=== PATIENT | female | born 2000 | race African-American/Black ===

== ENCOUNTER 2022-02-20 11:09 | Inpatient (IN) | payer MEDICAID ==
[~2022-02-20] VITALS: Ht 167.6 cm; Wt 103.0 kg
[2022-02-20] MEDS ORDERED: DEXT 5%/LR + PITOCIN 20UNITS/L 1,000 ML IV SCH (11:30)
[2022-02-20] MEDS ORDERED: NALOXONE HCL 0.4 MG/ML 1ML VIAL IM PRN (11:30)
[2022-02-20] MEDS ORDERED: LACTATED RINGERS 1,000 ML IV SCH (11:30)
[2022-02-20] MEDS ORDERED: RHO(D) IMMUNE GLOBULIN 300 MCG/SYR IM ONE (11:30)
[2022-02-20] MEDS ORDERED: TERBUTALINE SULFATE 1MG/ML VIAL SUBCUT NR (12:15)
[2022-02-20 12:23] LABS: BASOPHILS % 0.3 % (0.0-2.0); EOSINOPHILS % 0.2 % (0.0-5.0); HEMOGLOBIN. 11.1 g/dL (12.0-16.0); LYMPHOCYTES % 19.4 % (20.0-50.0); MEAN CORPUSCULAR VOLUME 83.4 fL (81.0-99.0); NEUTROPHILS % 68.1 % (40.0-76.0); PLATELET 158 x1000/uL (130-400); RED BLOOD CELL COUNT 3.95 mill/uL (4.2-5.4); RED CELL DISTRIBUTION WIDTH 15.3 % (11.6-14.6)
[2022-02-20] MEDS ORDERED: MORPHINE SULFATE/PF 1MG/ML 10ML AMP ONE (12:24)
[2022-02-20] MEDS ORDERED: DEXAMETHASONE 4MG/ML 1ML VIAL ONE (12:25)
[2022-02-20] MEDS ORDERED: OXYTOCIN 10 UNITS/ML 1ML ONE (12:25)
[2022-02-20] MEDS ORDERED: ONDANSETRON HCL 4MG/2ML INJ ONE (12:25)
[2022-02-20] MEDS ORDERED: EPHEDRINE SULFATE 50MG/ML VIAL ONE (12:26)
[2022-02-20] MEDS ORDERED: PHENYLEPHRINE HCL 10 MG/ML 1ML (IV VIAL) IV ONE (12:26)
[2022-02-20 12:35] LABS: PARTIAL THROMBOPLASTIN TIME 27.6 sec (23.4-31.0); PROTHROMBIN TIME 10.5 sec (9.6-11.0)
[2022-02-20 12:44] LABS: CLARITY URINE CLEAR (CLEAR); COLOR URINE DARK YELLOW (YELLOW); KETONES URINE 2+ (NEGATIVE); LEUKOCYTE ESTERASE URINE 1+ (NEGATIVE); NITRITE URINE NEGATIVE (NEGATIVE); OCCULT BLOOD URINE NEGATIVE (NEGATIVE); PROTEIN URINE TRACE (NEGATIVE); SPECIFIC GRAVITY URINE 1.023 (1.005-1.030)
[2022-02-20 12:59] LABS: *AMPHETAMINES SCREEN URINE NEGATIVE (NEGATIVE); *BARBITURATES SCREEN URINE NEGATIVE (NEGATIVE)
[2022-02-20 13:00] LABS: *BENZODIAZEPINES SCREEN URINE NEGATIVE (NEGATIVE); *COCAINE SCREEN URINE NEGATIVE (NEGATIVE); METHADONE URINE SCREEN NEGATIVE (NEGATIVE)
[2022-02-20 13:08] LABS: OPIATES URINE SCREEN NEGATIVE (NEGATIVE); PHENCYCLIDINE URINE SCREEN NEGATIVE (NEGATIVE)
[2022-02-20] MEDS ORDERED: KETOROLAC 60MG/2ML VIAL IM ONE (13:15)
[2022-02-20] MEDS ORDERED: FENTANYL CITRATE/PF 50MCG/ML 2ML VIAL IV PRN (14:00)
[2022-02-20] MEDS ORDERED: NALOXONE HCL 0.4 MG/ML 1ML VIAL IV PRN (14:00)
[2022-02-20] MEDS ORDERED: IBUPROFEN 400MG TABLET PO PRN (14:15)
[2022-02-20] MEDS ORDERED: BISACODYL 10MG SUPP PR PRN (14:15)
[2022-02-20] MEDS ORDERED: RHO(D) IMMUNE GLOBULIN 300 MCG/SYR IM PRN (14:15)
[2022-02-20] MEDS ORDERED: OXYCODONE HCL/ACETAMINOPHEN 5/325MG TABLET PO PRN (14:15)
[2022-02-20] MEDS ORDERED: HYDROMORPHONE HCL/PF 2MG/ML CPJ IM PRN (14:15)
[2022-02-20 14:19] LABS: CANNABINOID URINE SCREEN PRESUMTIVE POSITIVE (NEGATIVE)
[2022-02-20 16:30] VITALS: BP 99/58
[2022-02-20 16:48] LABS: HEPATITIS B SURFACE ANTIGEN NEGATIVE
[2022-02-20 18:30] VITALS: BP 107/54
[2022-02-20 20:00] VITALS: BP 97/56
[2022-02-20] MEDS: DEXT 5%/LR + PITOCIN 20UNITS/L 1,000 ML IV SCH (20:32)
[2022-02-20 23:40] VITALS: BP 96/48
[2022-02-21 04:30] VITALS: BP 97/41
[2022-02-21] MEDS: DEXT 5%/LR + PITOCIN 20UNITS/L 1,000 ML IV SCH (04:30)
[2022-02-21 06:00] VITALS: BP 105/52
[2022-02-21] MEDS: IBUPROFEN 800MG TABLET PO PRN ×2 (06:15→12:55)
[2022-02-21 06:26] LABS: BASOPHILS % 0.1 % (0.0-2.0); EOSINOPHILS % 0.1 % (0.0-5.0); HEMOGLOBIN. 8.7 g/dL (12.0-16.0); MEAN CORPUSCULAR HEMOGLOBIN 28.4 pg (28.0-32.0); MEAN CORPUSCULAR VOLUME 84.6 fL (81.0-99.0); MEAN PLATELET VOLUME 10.5 fl (7.4-10.4); MONOCYTES % 8.9 % (2.0-8.0); NEUTROPHILS % 72.9 % (40.0-76.0); PLATELET 68 x1000/uL (130-400); RED BLOOD CELL COUNT 3.08 mill/uL (4.2-5.4); RED CELL DISTRIBUTION WIDTH 15.9 % (11.6-14.6)
[2022-02-21 07:41] VITALS: BP 93/50
[2022-02-21] MEDS: PRENATAL VIT/FE FUMARATE/FA TABLET PO SCH (08:50)
[2022-02-21] MEDS: FERROUS SULFATE 325MG TABLET PO SCH ×3 (08:50→18:04)
[2022-02-21 16:05] VITALS: BP 110/49
[2022-02-21 19:30] VITALS: BP 103/44
[2022-02-22 04:00] VITALS: BP 119/69
[2022-02-22] MEDS: PRENATAL VIT/FE FUMARATE/FA TABLET PO SCH (07:59)
[2022-02-22] MEDS: IBUPROFEN 800MG TABLET PO PRN ×2 (07:59→17:27)
[2022-02-22] MEDS: FERROUS SULFATE 325MG TABLET PO SCH ×3 (07:59→17:27)
[2022-02-22 08:00] VITALS: BP 106/49
[2022-02-22 09:27] LABS: BASOPHILS % 0.3 % (0.0-2.0); EOSINOPHILS % 0.3 % (0.0-5.0); HEMOGLOBIN. 9.4 g/dL (12.0-16.0); LYMPHOCYTES % 21.5 % (20.0-50.0); MEAN CORPUSCULAR HEMOGLOBIN 28.4 pg (28.0-32.0); MEAN CORPUSCULAR VOLUME 84.7 fL (81.0-99.0); MEAN PLATELET VOLUME 9.3 fl (7.4-10.4); MONOCYTES % 9.9 % (2.0-8.0); PLATELET 145 x1000/uL (130-400); RED CELL DISTRIBUTION WIDTH 15.5 % (11.6-14.6)
[2022-02-22 16:00] VITALS: BP 101/45
[2022-02-22 19:30] VITALS: BP 114/60
[2022-02-23 04:00] VITALS: BP 112/62
[2022-02-23] MEDS ORDERED: IBUP-2028 PO (05:48)
[2022-02-23] MEDS ORDERED: FERR-63 PO (05:48)
[2022-02-23] MEDS: FERROUS SULFATE 325MG TABLET PO SCH (07:30)
[2022-02-23 08:16] VITALS: BP 103/45
[2022-02-23] MEDS: PRENATAL VIT/FE FUMARATE/FA TABLET PO SCH (09:00)
[2022-02-23] MEDS: IBUPROFEN 800MG TABLET PO PRN (10:38)
== END 2022-02-23 11:05 | disposition home or self-care (01) | DRG 540 ==
LOC: 8 EST LDRP 11:09 → OBSVTOIN 11:09 → 8EST 16:30
PROVIDERS: ADMIT Obstetrics & Gynecology; ATTEND Obstetrics & Gynecology
PROC: 10D00Z1 Extraction of Products of Conception, Low, Open Approach (ICD-10-PCS; principal; 2022-02-20)
DX: O32.1XX0 Maternal care for breech presentation, not applicable or unspecified (principal); D69.6 Thrombocytopenia, unspecified; O99.12 Other diseases of the blood and blood-forming organs and certain disorders involving the immune mechanism complicating childbirth; O34.211 Maternal care for low transverse scar from previous cesarean delivery; D64.9 Anemia, unspecified; Z20.822 Contact with and (suspected) exposure to COVID-19; Z37.0 Single live birth; O90.81 Anemia of the puerperium; Z3A.39 39 weeks gestation of pregnancy
CPT/HCPCS: 36415; 76805; 80305; 80349; 81003; 85025; 86592; 86703; 86762; 86850; 86900; 87340; 87426; 88307; 99281; J1100; J1885; J2274; J2370; J2405; J2590; J3490